=== PATIENT | male | born 1960 | race Caucasian/White ===

== ENCOUNTER 2023-09-13 10:22 | Emergency (ER) | payer MEDICARE, OTHER, SELFPAY ==
[2023-09-13 10:42] VITALS: BP 114/71
--- NOTE | 2023-09-13 11:30 | ED.GENMED ---
History of Present Illness
General
Chief Complaint: Back Pain
Source: patient
Exam Limitations: none
Time Seen by Provider: 09/13/23 11:18
Travel History
Have you had any contact with someone who has COVID-19?: No
Do you have any symptoms of coronavirus? Fever > 100 degrees, chills, cough, shortness of breath, sore throat, loss of taste or smell, muscle aches, or headache?: No
History of Present Illness
History of Present Illness:
63-year-old male insulin-dependent diabetic presents complaining of intermittent left flank pain over the past several days. There is also nausea associated with this pain. He has a history of kidney stones. He is required surgical intervention
for his kidney stones. He self caths for urine. He was here in January of last year for obstructive uropathy. He was also newly diagnosed with diabetes at that point. Says the pain is mild to moderate at this point is dull and aching in nature. No
other complaints at this time
Past History
Past History
ED Past Medical History: HTN and Hypercholesterolemia
ED Past Surgical History: Other (Hernia repair)
Social History
Tobacco: Non-smoker
Alcohol: Occasional (Drinks 3 times per week, 2 beers on 2 of the days and 1 beer on the other)
Drug: None
Personal:
Living: with family
Phy Exam
Physical Exam
Physical Exam:
General: Well-appearing male no acute respiratory distress
HEENT: Normocephalic atraumatic
Heart: Regular rate and rhythm no murmurs
Lungs: Clear to auscultation bilaterally no wheezing
Abdomen: Soft mild left-sided flank tenderness no guarding or rebound normal bowel sounds nondistended
Extremities: No cyanosis or edema
Course
Orders/Labs/Results
Orders:
Orders
09/13/23 11:29
CT Abd/pel Without Iv Or Oral Urgent
Comment:
Reason For Exam: left flank pain
09/13/23 11:37
Complete Blood Count/With Diff Urgent
Comprehensive Metabolic Panel Urgent
09/13/23 11:38
Urinalysis Reflex To Culture Urgent
Date Specimen was Collected: 09/13/23
Time Specimen was Collected: 11:
Urine Microscopic Reflex Cult Urgent
Urine Culture Urgent
MISAEL Source: U
Specimen Description:
Date Specimen was Collected: 09/13/23
Time Specimen was Collected: :
Abnormal Lab Results
09/13/23 09/13/23
11:37 11:38
RBC 4.55 L 10^6/uL
(4.70-6.10)
Sodium 134 L mmol/L
(135-145)
BUN 32 H mg/dl
(9-20)
Glucose 129 H mg/dl
(70-99)
Leukocyte Esterase Rfl 2+ A
(Negative)
Urine WBC (Reflex) 16-20 A /HPF
(0-5)
09/13/23 11:37
09/13/23 11:37
Vital Signs
Initial and Last Documented VS:
Initial Vital Signs
Temp Pulse Resp BP Pulse Ox
99.5 F 93 16 114/71 98
09/13/23 10:42 09/13/23 10:42 09/13/23 10:42 09/13/23 10:42 09/13/23 10:42
Last Documented Vital Signs
Temp Pulse Resp BP Pulse Ox
99.5 F 77 16 135/70 98
09/13/23 10:42 09/13/23 13:26 09/13/23 10:42 09/13/23 13:26 09/13/23 10:42
MDM/Problems Addressed
Differential Diagnosis Includes:
Left flank pain differential could include renal colic versus musculoskeletal flank pain versus diverticulitis versus UTI
Will check urine labs. Order CT scan.
*Critical Care Note
Total Time (30-74mins, 75-104mins- exclusive of procedures): Not Applicable
Update Note
Update Note:
CT negative for acute finding. Urinalysis without infection. Labs reviewed without significant finding. Pain improved. Question possibly recently passed stone versus musculoskeletal flank pain. Stable for discharge either way
ED Attending Note
-
Portions of this chart may have been created with voice recognition software.� Occasional wrong word or��sound alike� substitutions may have occurred due to the inherent limitations of voice recognition software.
Discharge Plan
Departure
Patient Disposition: Home (Routine Discharge)
Date of Disposition: 09/13/23
Time of Disposition: 14:34
Patient with high blood pressure during this ER visit?: No
Discharge Problem:
Acute flank pain
Instructions: Flank Pain ED
Prescriptions:
No Action
allopurinol 100 mg Tablet
100 mg PO DAILY
Multivitamin 50 Plus Tablet
1 tab PO DAILY
rosuvastatin 20 mg Tablet
20 mg PO DAILY
(DME) Contour Next Test Strips Strip
Qty: 200 0RF
Rx Instructions:
Pt testing 4 times a day
insulin lispro [Humalog KwikPen Insulin] 100 unit/mL Insulin Pen
8 unit SC AC Qty: 5 0RF
Rx Instructions:
Please take 8 units before each meal
insulin glargine [Lantus Solostar U-100 Insulin] 100 unit/mL (3 mL) Insulin Pen
12 unit SC HS Qty: 5 0RF
Rx Instructions:
Please take 12 units at bedtime
(DME) pen needle, diabetic [BD Ultra-Fine Svitlana Pen Needle] 32 gauge x ' Needle
Qty: 200 0RF
Rx Instructions:
As Directed
(DME) lancets [Color Lancets] 21 gauge Misc
Qty: 200 0RF
Rx Instructions:
Pt testing 4 times a day
tamsulosin 0.4 mg Capsule
0.8 mg PO DAILY Qty: 30 0RF
Rx Instructions:
For prostate enlargement
finasteride 5 mg Tablet
5 mg PO DAILY Qty: 30 0RF
Rx Instructions:
For prostate enlargement
amlodipine 5 mg tablet
5 mg PO DAILY Qty: 30 0RF
Rx Instructions:
new medication instead of olmesartan/HCTZ you were taking prior.
Referrals:
Devin Duffy PA-C [Family Provider] -
Activity Restrictions/Additional Instructions:
You may use Tylenol if needed for pain. Return for worsening symptoms otherwise follow-up with family doctor
Interventions
Interventions:
*ED COVID-19 Vaccine History Last Done: 09/13/23 10:42
ED-Musculoskeletal Assessment Last Done: 09/13/23 11:21
[2023-09-13 11:49] LABS: Urine Albumin Negative (Neg - Trace); Urine Bilirubin Negative (Negative); Urine Character Clear (Clear); Urine Color Yellow; Urine Glucose Negative (Negative); Urine Ketone Negative (Negative); Urine Leukocyte 2+ (Negative); Urine Nitrite Negative (Negative); Urine Occult Blood Negative (Negative); Urine Urobilinogen Negative (Neg - 1+)
[2023-09-13 11:50] LABS: % Basophils 0.6 % (0-2); % Eosinophils 4.4 % (0-6); % Immature Granulocytes 0.3 % (0-0.5); % Monocytes 7.8 % (1.7-9.3); % Neutrophils 56.9 % (42.2-75.2); Absolute Eosinophils 0.3 10^3/uL (0-0.7); Absolute Lymphocytes 1.9 10^3/uL (1.2-3.4); Absolute Monocytes 0.5 10^3/uL (0.1-0.6); Absolute Neutrophils 3.7 10^3/uL (1.4-6.5); Hemoglobin 13.6 g/dL (13.0-18.0); Mean Corpuscular Hgb 29.9 pg (27.0-31.0); Mean Corpuscular Volume 87.9 fL (80.0-94.0); Mean Platelet Volume 9.8 fL (7.4-10.4); Nucleated Red Blood Cells % 0 % (-); Platelet Count 268 10^3/uL (130-400); Red Blood Cell Count 4.55 10^6/uL (4.70-6.10); Red Cell Dist. Width 13.3 % (11.5-14.5); White Blood Cell Count 6.4 10^3/uL (4.8-10.8)
[2023-09-13 11:59] LABS: Urine Squamous Cell 0-2 /LPF (Few)
[2023-09-13 12:01] LABS: Urine Red Blood Cell None Seen /HPF (0-2); Urine White Cell 16-20 /HPF (0-5)
[2023-09-13 12:04] LABS: ALT (SGPT) 17 U/L (0-50); AST (SGOT) 23 U/L (17-59); Albumin 4.5 g/dl (3.5-5.0); Alkaline Phosphatase 70 U/L (38-126); Blood Urea Nitrogen 32 mg/dl (9-20); Calcium 9.3 mg/dl (8.4-10.2); Carbon Dioxide 28 mmol/L (22-30); Chloride 99 mmol/L (98-107); Glucose 129 mg/dl (70-99); Potassium 4.1 mmol/L (3.5-5.1); Sodium 134 mmol/L (135-145); Total Bilirubin 0.4 mg/dl (0.2-1.3); Total Protein 7.1 g/dl (6.3-8.2); eGFR > 60.00
[2023-09-13 13:26] VITALS: BP 135/70
[2023-09-13 14:48] VITALS: BP 137/85
[2023-09-13 14:49] VITALS: BP 137/85
== END 2023-09-13 14:50 | disposition home or self-care (01) ==
LOC: EMR 10:22
PROVIDERS: Physician Assistant; EMERGENCY PHYSICIAN Emergency Medicine; FAMILY PHYSICIAN Physician Assistant Medical
DX: R10.9 Unspecified abdominal pain (principal); R11.0 Nausea; Z87.442 Personal history of urinary calculi
CPT/HCPCS: 99284; 74176; 80053; 81003; 81015; 85025; 87086